=== PATIENT | male | born 1965 | race American Indian/Alaskan Native ===

== ENCOUNTER 2019-07-29 18:14 | Emergency (ER) | payer OTHER ==
[2019-07-29] MEDS ORDERED: ANTIVERT PO ONE (19:55)
--- NOTE | 2019-07-29 20:30 | XRay Report ---
CHEST 2 VIEWS INDICATION / CLINICAL INFORMATION: dizziness. COMPARISON: None available. FINDINGS: SUPPORT DEVICES: None. HEART / MEDIASTINUM: No significant abnormality. LUNGS / PLEURA: No significant pulmonary or pleural abnormality. No pneumothorax. ADDITIONAL FINDINGS: No significant additional findings. IMPRESSION: 1. No acute findings. Signer Name: Vj Steele MD Signed: 07/29/2019 8:25 PM Workstation Name: [id number]
[2019-07-29 20:46] LABS: Alanine Aminotransferase 22 units/L (7-56); Albumin 4.2 g/dL (3.9-5); BUN/Creatinine Ratio 12; Blood Urea Nitrogen 21 mg/dL (9-20); Calcium 8.2 mg/dL (8.4-10.2); Hemolysis Index 0
--- NOTE | 2019-07-29 20:47 | Cat Scan Report ---
CT head without contrast INDICATION : Right-sided headache for the past 2 days TECHNIQUE: Axial imaging performed from the skull apex through the skull base without the use of con trast. All CT examinations performed at this facility utilize dose modulation, iterative reconstruct ion or weight-based dosing, when appropriate, to reduce radiation dose to as low as reasonably achiev able. COMPARISON: None FINDINGS: No acute intracranial hemorrhage or parenchymal abnormality. Ventricles are normal in si ze and appear symmetric. Soft tissues including the orbits appear normal. No acute osseous abnorm ality. Sinuses and mastoid air cells are clear. IMPRESSION: No acute abnormality. Signer Name: Vj Steele MD Signed: 07/29/2019 8:43 PM Workstation Name: [id number]
[2019-07-29 20:51] LABS: Hematocrit 26.8 % (35.5-45.6); Hemoglobin 8.7 gm/dl (11.8-15.2); Mean Corpuscular HGB Conc 32 % (32-34); Mean Corpuscular Volume 79 fl (84-94); Platelet Count 246 K/mm3 (140-440); Red Blood Count 3.41 M/mm3 (3.65-5.03)
[2019-07-29 20:58] LABS: Red Cell Distribution Width 21.4 % (13.2-15.2)
[2019-07-29] MEDS ORDERED: NACL 0.9% 1000 ML 1,000 ML IV ONE (21:20)
[2019-07-29 22:15] LABS: Band Neutrophils # (Manual) 2.4 K/mm3; Total Cells Counted 100
[2019-07-29 22:17] LABS: Anisocytosis 1+; Hypochromasia 1+
--- NOTE | 2019-07-29 22:41 | Cat Scan Report ---
CTA CHEST WITH IV CONTRAST INDICATION: dizziness. TECHNIQUE: Axial CT images were obtained through the chest after injection of 60 cc Omnipaque 350 IV contrast. 3 plane MIP reconstructions were produced. All CT scans at this location are performed using CT dose r eduction for ALARA by means of automated exposure control. COMPARISON: None available. FINDINGS: Exam is limited secondary to moderate amount of respiratory motion artifact. PULMONARY ARTERIES: No large central pulmonary emboli. THORACIC AORTA: No acute abnormality. HEART: Normal. CORONARY ARTERIES: No significant calcification. PLEURA: No pleural effusion. No pneumothorax. LYMPH NODES: No significant adenopathy. LUNGS: No acute air space or interstitial disease. ADDITIONAL FINDINGS: None. UPPER ABDOMEN: No acute findings. SKELETAL STRUCTURES: No significant osseous abnormality. IMPRESSION: 1. No CT evidence for pulmonary embolism. 2. No acute findings. Signer Name: Caden Cyr MD Signed: 07/29/2019 10:37 PM Workstation Name: [id number]
--- NOTE | 2019-07-30 00:41 | Emergency Department Report ---
ED Dizziness HPI - General Chief Complaint: Dizziness Stated Complaint: DIZZY/EAR ACHE Time Seen by Provider: 07/29/19 20:10 Source: patient Mode of arrival: Ambulatory Limitations: No Limitations - History of Present Illness Initial Comments: Patient is a 53-year-old male with a history of chronic vertigo and Nonspecific chronic Leukemoid reactions presents to the ED with complaint of acute exacerbation of his chronic vertigo that has blood dizziness and near syncope for the last 3 weeks was in the last 2 days. Patient says that he has been to his oncologist and rn staff but nobody has told him the etiology of his chronic leukocytosis. Patient states that the vertigo symptoms have been more frequent but still intermittent. Patient denies syncope, chest pain, shortness of breath, change in vision, hearing loss, nausea, vomiting, fever, chills, abdominal pain, hematuria, hematemesis or hematochezia. MD Complaint: dizziness, lightheadedness, near syncope -: Gradual, month(s) (6) - Related Data Previous Rx's Medication Instructions Recorded Last Taken Type Meclizine [Antivert] 25 mg PO TID PRN #90 tablet 07/30/19 Unknown Rx Allergies Allergy/AdvReac Type Severity Reaction Status Date / Time No Known Allergies Allergy Unverified 04/26/15 21:07 ED Review of Systems ROS: Stated complaint: DIZZY/EAR ACHE Other details as noted in HPI Constitutional: denies: chills, fever Eyes: denies: eye pain, eye discharge, vision change ENT: denies: ear pain, throat pain Respiratory: denies: cough, shortness of breath, wheezing Cardiovascular: denies: chest pain, palpitations Endocrine: no symptoms reported Gastrointestinal: denies: abdominal pain, nausea, diarrhea Genitourinary: denies: urgency, dysuria Musculoskeletal: denies: back pain, joint swelling, arthralgia Skin: denies: rash, lesions Neurological: vertigo, other (DIZZINESS). denies: headache, weakness, paresthesias Psychiatric: anxiety. denies: depression Hematological/Lymphatic: denies: easy bleeding, easy bruising ED Past Medical Hx - Past Medical History Previous Medical History?: Yes Additional medical history: "Dizziness since age 10", enlarged spleen, enlarged prostate - Surgical History Past Surgical History?: No - Social History Smoking Status: Never Smoker Substance Use Type: None - Medications Home Medications: Home Medications Medication Instructions Recorded Confirmed Last Taken Type Meclizine [Antivert] 25 mg PO TID PRN #90 tablet 07/30/19 Unknown Rx ED Physical Exam - General Limitations: No Limitations General appearance: alert, in no apparent distress - Head Head exam: Present: atraumatic, normocephalic, normal inspection - Eye Eye exam: Present: normal appearance, PERRL, EOMI Pupils: Present: normal accommodation - ENT ENT exam: Present: normal exam, normal orophraynx, mucous membranes moist, TM's normal bilaterally, normal external ear exam - Neck Neck exam: Present: normal inspection, full ROM - Respiratory Respiratory exam: Present: normal lung sounds bilaterally. Absent: respiratory distress, wheezes, rales, rhonchi, chest wall tenderness, accessory muscle use, decreased breath sounds, prolonged expiratory - Cardiovascular Cardiovascular Exam: Present: regular rate, normal rhythm, normal heart sounds. Absent: systolic murmur, diastolic murmur, rubs, gallop - GI/Abdominal GI/Abdominal exam: Present: soft, normal bowel sounds. Absent: distended, rebound, rigid, hypoactive bowel sounds, organomegaly, mass - Rectal Rectal exam: Present: deferred - Extremities Exam Extremities exam: Present: normal inspection, full ROM, normal capillary refill - Back Exam Back exam: Present: normal inspection, full ROM. Absent: tenderness, CVA tenderness (R), CVA tenderness (L), muscle spasm, paraspinal tenderness - Neurological Exam Neurological exam: Present: alert, oriented X3, CN II-XII intact, normal gait, reflexes normal - Psychiatric Psychiatric exam: Present: normal affect, normal mood, anxious - Skin Skin exam: Present: warm, dry, intact, normal color. Absent: rash ED Course Vital Signs 07/29/19 18:19 Temperature 98.3 F Pulse Rate 18 L Respiratory 18 Rate Blood Pressure 138/77 O2 Sat by Pulse 100 Oximetry - Reevaluation(s) Reevaluation #1: 07/30/19 00:47 This is a 53-year-old -Russian male who presented to the ED with nonspecific vertigo symptoms and dizziness for 3 weeks. In the ED, patient is alert and oriented 3 and is in distress. Labs were drawn and head CT scan without contrast, chest x-ray ordered. Patient was treated for dizziness with meclizine 25 mg by mouth 1. Chest x-ray shows no acute cardiopulmonary abnormalities. Head CT scan without contrast shows no acute intracranial abnormalities or hemorrhage. Lab test results were reviewed and are significant for leukocytoses of 62,200, and with elevated basophils, monocytes, eosinophils and neutrophils. D-dimer was 358.18 and BUN/creatinine 21 and 1.8. CTA chest to rule out PE showed no evidence of PE. Patient also received normal saline 1 L IV bolus and 80. On reevaluation, patient is resting comfortably in the room, sleeping but arousable and has not had any dizziness or vertigo while in the ED. Patient has an appointment with his oncologist and rn staff in the next 1-2 weeks. Patient was discharged home on meclizine prescriptions and advised to drink plenty of fluids and follow-up as previously scheduled with his oncologist and rn staff. Patient is advised to return to the ED immediately if symptoms get worse. ED Medical Decision Making - Lab Data Result diagrams: 07/29/19 20:00 07/29/19 20:00 - EKG Data EKG shows normal: sinus rhythm Rate: bradycardia - Radiology Data Radiology results: report reviewed, image reviewed Chest x-ray shows no acute cardiopulmonary abnormalities. Head CT scan without contrast shows no acute intracranial abnormalities or hemorrhage. CTA chest shows no evidence of PE. - Medical Decision Making This is a 53-year-old -Russian male who presented to the ED with nonspecific vertigo symptoms and dizziness for 3 weeks. In the ED, patient is alert and oriented 3 and is in distress. Labs were drawn and head CT scan without contrast, chest x-ray ordered. Patient was treated for dizziness with meclizine 25 mg by mouth 1. Chest x-ray shows no acute cardiopulmonary abnormalities. Head CT scan without contrast shows no acute intracranial abnormalities or hemorrhage. Lab test results were reviewed and are significant for leukocytoses of 62,200, and with elevated basophils, monocytes, eosinophils and neutrophils. D-dimer was 358.18 and BUN/creatinine 21 and 1.8. The troponin levels were normal including the initial and repeat troponin. The EKG shows sinus bradycardia with a ventricular rate of [address] or T-wave abnormalities. CTA chest to rule out PE showed no evidence of PE. Patient also received normal saline 1 L IV bolus and 80. On reevaluation, patient is resting comfortably in the room, sleeping but arousable and has not had any dizziness or vertigo while in the ED. The patient's symptoms chronic and given the fact the patient really has specialists who currently investigating his case, patient was discharged home and advised to follow-up with his specialist physicians as previously scheduled. Patient has an appointment with his oncologist and rn staff in the next 1-2 weeks. Patient was discharged home on meclizine prescriptions and advised to drink plenty of fluids and follow-up as previously scheduled with his oncologist and rn staff. Patient is advised to return to the ED immediately if symptoms get worse. - Differential Diagnosis dizziness, leukemoid reaction; vertigo, PE, Pneumonia Critical care attestation.: If time is entered above; I have spent that time in minutes in the direct care of this critically ill patient, excluding procedure time. ED Disposition Clinical Impression: Dizziness, nonspecific, Vertigo of central origin of left ear, Leukemoid reaction Leukocytosis, unspecified Qualifiers: Leukocytosis type: leukemoid reaction Qualified Code(s): D72.823 - Leukemoid reaction Disposition: DC- TO HOME OR SELFCARE Is pt being admited?: No Does the pt Need Aspirin: No Condition: Stable Instructions: Vertigo (ED), Dizziness (ED) Additional Instructions: Take medications with food, drink plenty of fluids and follow-up with your primary care physician or rn staff as previously scheduled. Return to the ED immediately if symptoms get worse. Prescriptions: Meclizine [Antivert] 25 mg PO TID PRN #90 tablet PRN Reason: Vertigo Referrals: PRIMARY CARE, [Primary Care Provider] - 3-5 Days Time of Disposition: 00:41 Print Language: YEMENI
[2019-07-30 01:11] VITALS: BP 139/75
== END 2019-07-30 01:10 | disposition home or self-care (01) ==
LOC: ED 18:14
DX: H81.42 Vertigo of central origin, left ear (principal); D72.823 Leukemoid reaction
CPT/HCPCS: 36415; 70450; 71046; 71275; 80053; 84484; 85007; 85025; 85379; 93005; 93010; 96360; 99284; J7030; Q9967

== ENCOUNTER 2019-11-16 15:13 | Emergency (ER) | payer OTHER ==
--- NOTE | 2019-11-16 15:43 | Event Note ---
ED Screening Note Date of service: 11/16/19 Time: 15:36 ED Screening Note: This is a 54 y.o. M. that presents to the ER with abdominal pain and vomiting since last night. This initial assessment/diagnostic orders/clinical plan/treatment(s) is/are subject to change based on patients health status, clinical progression and re- assessment by fellow clinical providers in the ED. Further treatment and workup at subsequent clinical providers discretion. Patient/guardian urged not to elope from the ED as their condition may be serious if not clinically assessed and managed. Initial orders include: Labs
[2019-11-16 16:06] LABS: Hematocrit 29.9 % (35.5-45.6); Hemoglobin 9.5 gm/dl (11.8-15.2); Mean Corpuscular HGB Conc 32 % (32-34); Mean Corpuscular Volume 77 fl (84-94)
[2019-11-16 16:15] LABS: Red Cell Distribution Width 22.2 % (13.2-15.2)
[2019-11-16 16:16] LABS: Platelet Count 224 K/mm3 (140-440)
[2019-11-16 16:27] LABS: Calcium 8.9 mg/dL (8.4-10.2)
[2019-11-16 17:18] LABS: Basophils % (Manual) 0 % (0.0-1.8); Eosinophils % (Manual) 2.5 % (0.0-4.3); Myelocytes # (Manual) 0.4 K/mm3; Nucleated Red Blood Cells 2.5 % (0.0-0.9); Total Cells Counted 200
[2019-11-16 17:19] LABS: Hypochromasia 1+
[2019-11-16 17:23] LABS: Tear Drop Cells 1+
[2019-11-16 17:24] LABS: Large Platelets 1+; Platelet Estimate Consistent w Auto
[2019-11-16 18:01] LABS: Bilirubin,Urine NEG (Negative); Blood,Urine MOD (Negative); Color,Urine Yellow (Yellow); Mucus,Urine FEW /HPF; Urobilinogen,Urine < 2.0 mg/dL (<2.0)
[2019-11-16 18:47] VITALS: BP 147/79
--- NOTE | 2019-11-16 19:28 | Emergency Department Report ---
ED General Adult HPI - General Chief complaint: Abdominal Pain Stated complaint: FOOD POSIONING Time Seen by Provider: 11/16/19 15:35 Source: patient Mode of arrival: Ambulatory Limitations: No Limitations - History of Present Illness Initial comments: The patient presents to the emergency department with a chief complaint of abdominal pain that has been present for the last 2 weeks. Patient states she recently had an EGD which shows a gastritis and other findings. Patient complains of nausea vomiting but denies diarrhea. She denies chest pain, s hortness breath, or headache. -: Sudden Location: abdomen Radiation: non-radiation Severity scale (0 -10): 2 Quality: aching Consistency: constant Improves with: none Worsens with: none Associated Symptoms: denies other symptoms Treatments Prior to Arrival: none - Related Data Previous Rx's Medication Instructions Recorded Last Taken Type Meclizine [Antivert] 25 mg PO TID PRN #90 tablet 07/30/19 Unknown Rx Dicyclomine [Bentyl] 10 mg PO QID PRN #20 capsule 11/16/19 Unknown Rx Allergies Allergy/AdvReac Type Severity Reaction Status Date / Time No Known Allergies Allergy Unverified 04/26/15 21:07 ED Review of Systems ROS: Stated complaint: FOOD POSIONING Other details as noted in HPI Comment: All other systems reviewed and negative Constitutional: denies: chills, fever Eyes: denies: eye pain, eye discharge, vision change ENT: denies: ear pain, throat pain Respiratory: denies: cough, shortness of breath, wheezing Cardiovascular: denies: chest pain, palpitations Endocrine: no symptoms reported Gastrointestinal: abdominal pain. denies: nausea, diarrhea Genitourinary: denies: urgency, dysuria Musculoskeletal: denies: back pain, joint swelling, arthralgia Skin: denies: rash, lesions Neurological: denies: headache, weakness, paresthesias Psychiatric: denies: anxiety, depression Hematological/Lymphatic: denies: easy bleeding, easy bruising ED Past Medical Hx - Past Medical History Additional medical history: "Dizziness since age 10", enlarged spleen, enlarged prostate - Surgical History Past Surgical History?: No - Social History Smoking Status: Never Smoker Substance Use Type: None - Medications Home Medications: Home Medications Medication Instructions Recorded Confirmed Last Taken Type Meclizine [Antivert] 25 mg PO TID PRN #90 tablet 07/30/19 Unknown Rx Dicyclomine [Bentyl] 10 mg PO QID PRN #20 capsule 11/16/19 Unknown Rx ED Physical Exam - General Limitations: No Limitations General appearance: alert, in no apparent distress - Head Head exam: Present: atraumatic, normocephalic - Eye Eye exam: Present: normal appearance, PERRL, EOMI - ENT ENT exam: Present: mucous membranes moist - Neck Neck exam: Present: normal inspection - Respiratory Respiratory exam: Present: normal lung sounds bilaterally. Absent: respiratory distress - Cardiovascular Cardiovascular Exam: Present: regular rate, normal rhythm. Absent: systolic murmur, diastolic murmur, rubs, gallop - GI/Abdominal GI/Abdominal exam: Present: soft, tenderness, normal bowel sounds. Absent: distended - Rectal Rectal exam: Present: deferred - Extremities Exam Extremities exam: Present: normal inspection - Back Exam Back exam: Present: normal inspection - Neurological Exam Neurological exam: Present: alert, oriented X3, CN II-XII intact. Absent: motor sensory deficit - Psychiatric Psychiatric exam: Present: normal affect, normal mood - Skin Skin exam: Present: warm, dry, intact, normal color. Absent: rash ED Course Vital Signs 11/16/19 11/16/19 11/16/19 15:39 16:45 17:01 Temperature 97.8 F Pulse Rate 64 64 81 Respiratory 18 13 21 Rate Blood Pressure 139/73 144/86 O2 Sat by Pulse 98 99 Oximetry 11/16/19 11/16/19 11/16/19 17:15 17:31 17:45 Temperature Pulse Rate 81 79 79 Respiratory 17 16 18 Rate Blood Pressure 144/86 144/86 144/86 O2 Sat by Pulse 99 100 99 Oximetry 11/16/19 11/16/19 11/16/19 18:00 18:15 18:31 Temperature Pulse Rate 78 81 81 Respiratory 17 19 18 Rate Blood Pressure 147/79 147/79 147/79 O2 Sat by Pulse 100 99 99 Oximetry 11/16/19 11/16/19 18:45 18:47 Temperature Pulse Rate 79 Respiratory 17 18 Rate Blood Pressure 147/79 O2 Sat by Pulse 99 100 Oximetry ED Medical Decision Making - Lab Data Result diagrams: 11/16/19 15:51 11/16/19 15:51 Lab Results 11/16/19 11/16/19 11/16/19 Range/Units 15:51 15:51 17:30 WBC 80.7 H* (4.5-11.0) K/mm3 RBC 3.90 (3.65-5.03) M/mm3 Hgb 9.5 L (11.8-15.2) gm/dl Hct 29.9 L (35.5-45.6) % MCV 77 L (84-94) fl MCH 25 L (28-32) pg MCHC 32 (32-34) % RDW 22.2 H (13.2-15.2) % Plt Count 224 (140-440) K/mm3 [place] % (Auto) Deicer Inspector Electric Lymph # Deicer Inspector Electric Add Manual Diff Complete Total Counted 200 Seg Neuts % (Manual) 63.5 (40.0-70.0) % Band Neutrophils % 0 % Lymphocytes % (Manual) 8.0 L (13.4-35.0) % Reactive Lymphs % (Man) 0 % Monocytes % (Manual) 18.0 H (0.0-7.3) % Eosinophils % (Manual) 2.5 (0.0-4.3) % Basophils % (Manual) 0 (0.0-1.8) % Metamyelocytes % 2.5 % Myelocytes % 0.5 % Promyelocytes % 0 % Blast Cells % 5.0 % Nucleated RBC % 2.5 H (0.0-0.9) % Seg Neutrophils # Man 51.2 H (1.8-7.7) K/mm3 Band Neutrophils # 0.0 K/mm3 Lymphocytes # (Manual) 6.5 H (1.2-5.4) K/mm3 Abs React Lymphs (Man) 0.0 K/mm3 Monocytes # (Manual) 14.5 H (0.0-0.8) K/mm3 Eosinophils # (Manual) 2.0 H (0.0-0.4) K/mm3 Basophils # (Manual) 0.0 (0.0-0.1) K/mm3 Metamyelocytes # 2.0 K/mm3 Myelocytes # 0.4 K/mm3 Promyelocytes # 0.0 K/mm3 Blast Cells # 0.5 K/mm3 WBC Morphology Not Reportable Hypersegmented Neuts Not Reportable Hyposegmented Neuts Not Reportable Hypogranular Neuts Not Reportable Smudge Cells Not Reportable Toxic Granulation Not Reportable Toxic Vacuolation Not Reportable Dohle Bodies Not Reportable Pelger-Huet Anomaly Not Reportable Jim Rods Not Reportable Platelet Estimate Consistent w auto Clumped Platelets Not Reportable Plt Clumps, EDTA Not Reportable Large Platelets 1+ Giant Platelets Not Reportable Platelet Satelliting Not Reportable Plt Morphology Comment Not Reportable RBC Morphology Not Reportable Dimorphic RBCs Not Reportable Polychromasia Not Reportable Hypochromasia 1+ Poikilocytosis Not Reportable Anisocytosis Not Reportable Microcytosis 1+ Macrocytosis Not Reportable Spherocytes Not Reportable Pappenheimer Bodies Not Reportable Sickle Cells Not Reportable Target Cells Not Reportable Tear Drop Cells 1+ Ovalocytes Not Reportable Helmet Cells Not Reportable Bold[place] Bodies Not Reportable [place] Rings Not Reportable Paulette Cells Not Reportable Bite Cells Not Reportable Crenated Cell Not Reportable Elliptocytes Not Reportable Acanthocytes (Spur) Not Reportable Rouleaux Not Reportable Hemoglobin C Crystals Not Reportable Schistocytes Not Reportable Malaria parasites Not Reportable Mark Bodies Not Reportable Hem Pathologist Commnt No Sodium 137 (137-145) mmol/L Potassium 3.9 (3.6-5.0) mmol/L Chloride 100.2 (98-107) mmol/L Carbon Dioxide 20 L (22-30) mmol/L Anion Gap 21 mmol/L BUN 26 H (9-20) mg/dL Creatinine 2.1 H (0.8-1.5) mg/dL Estimated GFR 40 ml/min BUN/Creatinine Ratio 12 % Glucose 95 (75-100) mg/dL Calcium 8.9 (8.4-10.2) mg/dL Total Bilirubin 0.40 (0.1-1.2) mg/dL AST 45 H (5-40) units/L ALT 25 (7-56) units/L Alkaline Phosphatase 73 (35-129) units/L Total Protein 9.4 H (6.3-8.2) g/dL Albumin 4.0 (3.9-5) g/dL Albumin/Globulin Ratio 0.7 % Lipase 78 H (13-60) units/L Urine Color Yellow (Yellow) Urine Turbidity Clear (Clear) Urine pH 6.0 (5.0-7.0) Ur Specific [place] 1.015 (1.003-1.030) Urine Protein 30 mg/dl (Negative) mg/dL Urine Glucose (UA) Neg (Negative) mg/dL Urine Ketones Neg (Negative) mg/dL Urine Blood Mod (Negative) Urine Nitrite Neg (Negative) Urine Bilirubin Neg (Negative) Urine Urobilinogen < 2.0 (<2.0) mg/dL Ur Leukocyte Esterase Neg (Negative) Urine WBC (Auto) 3.0 (0.0-6.0) /HPF Urine RBC (Auto) 28.0 (0.0-6.0) /HPF U Epithel Cells (Auto) < 1.0 (0-13.0) /HPF Urine Mucus Few /HPF - Radiology Data Radiology results: report reviewed - Medical Decision Making The patient's white count was discussed with him. Patient states about 2 years ago and was 54,000 any followed up with [place] [facility] and had a bone biopsy done and was told to take a chemotherapy pill which he did not take. Patient states that when he came to the emergency department prior to this visit his white count was 64,000 continuous pulse of follow with him on but he did not. Patient states he had an appointment with [place] [facility] on 08/16 and they were planning on doing another bone biopsy and wanted to start chemotherapy but he never went back. Critical care attestation.: If time is entered above; I have spent that time in minutes in the direct care of this critically ill patient, excluding procedure time. ED Disposition Clinical Impression: Abdominal pain, Leukocytosis Disposition: DC-01 TO HOME OR SELFCARE Is pt being admited?: No Does the pt Need Aspirin: No Condition: Stable Instructions: Abdominal Pain (ED), Leukocytosis (ED) Additional Instructions: Please follow up with an oncologist as discussed Referrals: TIFFANY BAI MD [Primary Care Provider] - 3-5 Days DAISY LOBATO MD [Staff Physician] - 3-5 Days Time of Disposition: 21:43
--- NOTE | 2019-11-16 21:16 | Cat Scan Report ---
CT abdomen pelvis w con INDICATION / CLINICAL INFORMATION: abdominal pain with elevated white count(80,000). TECHNIQUE: All CT scans at this location are performed using CT dose reduction for ALARA by means of automated e xposure control. COMPARISON: None available. FINDINGS: Mild dependent atelectasis is demonstrated in both lower lungs. ABDOMEN: The gallbladder, liver and pancreas are normal. There is a moderate splenomegaly. Left nephrolithiasis without hydronephrosis. Kidneys are otherwise normal. No adrenal masses. No retroperitoneal adenopathy. The small bowel is nondistended. Pelvis: There is a small amount of free fluid seen dependently within the pelvis. No inflammatory changes are identified. No enlarged pelvic lymph nodes or inguinal adenopathy. No osseous abnormality. IMPRESSION: 1. Moderate splenomegaly. 2. Left nephrolithiasis without hydronephrosis. 3. Small amount of pelvic ascites. Signer Name: Tanner Fink MD Signed: 11/16/2019 9:12 PM Workstation Name: [id number]
== END 2019-11-16 22:06 | disposition home or self-care (01) ==
LOC: ED 15:13
DX: R10.9 Unspecified abdominal pain (principal); D72.829 Elevated white blood cell count, unspecified
CPT/HCPCS: 36415; 74177; 80053; 81001; 83690; 85007; 85025; 99284; Q9967